=== PATIENT | male | born 1975 | race Two or more races ===

== ENCOUNTER 2018-08-02 18:47 | Emergency (ER) | payer SELFPAY ==
[~2018-08-02] VITALS: Ht 172.7 cm; Wt 122.9 kg
[2018-08-02 18:52] VITALS: BP 166/85; PULSE 95; RESP 18; Ht 172.7 cm; Wt 122.9 kg
== END 2018-08-02 22:20 | disposition left against medical advice (07) ==
LOC: E/R 18:47
DX: Z53.21 Procedure and treatment not carried out due to patient leaving prior to being seen by health care provider (principal)